=== PATIENT | female | born 1995 | race Caucasian/White ===

== ENCOUNTER 2021-09-30 06:17 | Emergency (ER) | payer OTHER ==
[~2021-09-30] VITALS: Ht 175.3 cm; Wt 74.8 kg
[~2021-09-30 06:17] MED LIST: MOTRIN600 MG PO; ZOFRAN4 MG PO
[2021-09-30 06:56] LABS: BASOPHIL 0.4 % (0-2); HGB 13.4 g/dl (12.5-16.0); INR 0.99 (0.9-1.2); LYMPHOCYTE 21.4 % (15-48); MCH 29.5 pg (25.0-31.0); MCHC 33.5 g/dL (32.0-36.0); MCV 88.1 fL (78.0-100.0); MONOCYTE 9.2 % (0-12); NEUTROPHIL 66.7 % (41-80); NRBC 0; PLT 221 K/uL (150-400); PROTHROMBIN TIME 12.5 SECONDS (11.8-13.4); RBC 4.54 M/uL (4.20-5.40); RDW 12.3 % (11.5-14.0); WBC 7.4 K/uL (4.0-10.5)
[2021-09-30 07:12] LABS: ALBUMIN 3.5 g/dL (3.4-5.0); BILIRUBIN - TOTAL 0.5 mg/dL (0.2-1.0); BUN/CREAT RATIO (CALC) 17.1 RATIO; CREATININE 0.7 mg/dL (0.51-0.95); GLOBULIN (CALCULATION) 3.4 g/dL; POTASSIUM 3.8 mmol/L (3.5-5.1); TOTAL PROTEIN 6.9 g/dL (6.4-8.2)
[2021-09-30] MEDS ORDERED: ATENOLOL25 MG PO (10:06)
[2021-09-30] MEDS ORDERED: ATIVAN0.5 MG PO (10:06)
== END 2021-09-30 10:45 | disposition home or self-care (01) ==
LOC: FER 06:17
PROVIDERS: Emergency Medicine Emergency Medical Services
DX: R07.89 Other chest pain (principal)
CPT/HCPCS: 36415; 71045; 80053; 84439; 84443; 84484; 85025; 85379; 85610; 85730; 93005